=== PATIENT | female | born 1940 | race Caucasian/White ===

== ENCOUNTER 2021-04-24 07:30 | Outpatient (CLI) | payer OTHER, SELFPAY ==
[2021-04-24 08:21] LABS: Mean Corpuscular HGB Conc 31.7 g/dl (32-36); Mean Corpuscular Volume 91.5 fl (80-100); Mean Platelet Volume 9.9 fl (7.4-10.4); Platelet Count Result 212 k/mm3 (150-375); Red Blood Count 4.48 M/mm3 (4.2-5.4); Red Cell Distribution Width 12.9 % (11.5-14.5); White Blood Count 4.2 K/mm3 (4.5-10.0)
[2021-04-24 09:37] LABS: Alanine Aminotransferase 11 U/L (4-35); Albumin Level 3.9 g/dL (3.5-5.1); Alkaline Phosphatase 91 U/L (38-126); Anion Gap 5 mmol/L (8-16); Aspartate Amino Transferase 25 U/L (14-36); Bilirubin,Total 0.6 mg/dL (0.2-1.3); Blood Urea Nitrogen 19 mg/dL (7-17); Calcium 8.7 mg/dL (8.4-10.2); Carbon Dioxide 29 mmol/L (22-30); Chloride 106 mmol/L (98-107); Cholesterol 218 mg/dL (0-200); Estimated Glomerular Filt Rate > 60; Glucose 82 mg/dL (65-110); HDL Direct 68 mg/dL; Potassium 3.7 mmol/L (3.4-5.0); Sodium 140 mmol/L (137-145); Triglycerides 70 mg/dL (<150)
[2021-04-24 09:41] LABS: LDL Cholesterol Direct 107 mg/dL
[2021-04-24 10:58] LABS: Folic Acid 8.1 ng/mL (2.76->20)
== END 2021-04-24 07:31 | disposition home or self-care (01) ==
PROVIDERS: PCP Physician Assistant; Visit Provider Physician Assistant
DX: R53.83 Other fatigue (principal); E78.5 Hyperlipidemia, unspecified
CPT/HCPCS: 36415; 80053; 80061; 82607; 82746; 84443; 85027

== ENCOUNTER 2021-10-19 07:20 | Observation (INO) | payer OTHER, SELFPAY ==
[2021-10-19] VITALS (17 sets, daily range): BP systolic 143–205; BP diastolic 68–88; PULSE 67–96; RESP 14–19; TEMP 36.7–37.7; O2SAT 95–100
--- NOTE | ~2021-10-19 | XR_ITS ---
EXAMINATION: XR chest 1V DATE: 10/19/2021 08:11 INDICATION: Right-sided heaviness/weakness. Fall. TECHNIQUE: frontal view of the chest was obtained. COMPARISON: None FINDINGS: Chronic 1.5 cm calcified granuloma in the left lower lobe at the medial left lower lung zone which ca n be seen on CT dated 07/22/2008. No other airspace opacities, pulmonary edema, pleural effusion or pne umothorax. The cardiomediastinal silhouette is normal. Visualized bones and soft tissues are unremark able. IMPRESSION: 1. No acute cardiopulmonary disease. Reviewed, dictated and finalized at location A.
--- NOTE | ~2021-10-19 | XR_ITS ---
EXAMINATION: XR knee RT min 4V DATE: 10/19/2021 08:11 INDICATION: Fall with anterior right knee injury TECHNIQUE: Anteroposterior, 2 oblique and crosstable lateral views of the right knee were obtained COMPARISON: None. FINDINGS: Alignment is normal. No fracture. Osteoarthritis with mild joint space narrowing in the medial and pa tellofemoral compartments. No joint effusion/layering lipohemarthrosis. Soft tissues are unremarkable . IMPRESSION: 1. No right knee joint effusion or acute osseous abnormality. 2. Mild osteoarthritis in the medial and patellofemoral compartments. Reviewed, dictated and finalized at location A.
--- NOTE | ~2021-10-19 | CT_ITS ---
EXAMINATION: CTA BRAIN/CAROTID DATE: 10/19/2021 10:14 INDICATION: Right-sided weakness. TECHNIQUE: Computed tomographic angiography (CTA) of the head and neck was performed with 100 mL Omni paque-350 intravenous contrast. Multiplanar reconstructions and maximum intensity projection 3D-recon structions of the carotid arteries and of the intracranial arteries were created by the technologist on a separate workstation. Automated exposure control and iterative reconstruction technique were emp loyed.The dose-length product was 1031.22 mGy-cm. COMPARISON: None. FINDINGS: Carotid arteries: Minimal nonhemodynamically significant atherosclerotic plaque at the normal caliber aortic arch. No d issection. There is small amount of atherosclerotic plaque with 0% stenosis of the right and left car otid bulbs relative to normal distal artery lumen diameter (NASCET criteria). Mild biapical pleural-p arenchymal scarring. Calcified left hilar lymph nodes consistent with old granulomatous disease. Cerv ical soft tissues are unremarkable. Moderate to severe cervical spondylosis with mild central canal s tenosis at C5-C6 and mild neural foraminal stenosis at a few levels on both the left and right. Intracranial arteries Nonhemodynamically significant atherosclerosis at the bilateral carotid siphons. Is no hemodynamicall y significant stenosis in the vertebral, basilar and internal carotid arteries. Vertebral arteries ar e codominant. There are no aneurysms identified. Both A1 and P1 segments are patent. Cerebral arter ial arborization appears symmetric. No abnormally enhancing brain lesions identified. IMPRESSION: 1. 0% stenosis of the right carotid bulb relative to normal distal artery lumen diameter (NASCET crit eria). 2. Mild nonhemodynamically significant atherosclerotic plaque at the bilateral carotid siphons. Other zhu normal cerebral CT angiogram. Reviewed, dictated and finalized at location A. IMPRESSION: 1. 0% stenosis of the right carotid bulb relative to normal distal artery lumen diameter (NASCET criteria). 2. Mild nonhemodynamically significant atherosclerotic plaque at the bilateral carotid siphons. Otherwise normal cerebral CT angiogram.
--- NOTE | ~2021-10-19 | MR_ITS ---
EXAMINATION: MR brain/brain stem wo/w con DATE: 10/19/2021 14:38 INDICATION: Right hemiparesis. TECHNIQUE: Magnetic resonance imaging (MRI) of the brain and brainstem was performed without and with 15 mL MultiHance intravenous contrast. COMPARISON: Head CT 10/19/2021 FINDINGS: There are small acute infarcts in the left frontoparietal region, left parietal lobe, and l eft insula. There are scattered areas of nonspecific increased T2-weighted signal intensity in the ce rebral white matter, bilateral basal ganglia, and isak. There is no intracranial hemorrhage or abnorm al mass lesion. The ventricles are normal in size. There is mild mucosal thickening in the paranasal sinuses. The orbits are normal. The mastoid air cells are normal. IMPRESSION: 1. Acute infarcts involving the left frontoparietal region, left parietal lobe, and left insula. 2. Moderate nonspecific cerebral white matter disease and disease of the bilateral basal ganglia and isak, which likely represents chronic small vessel ischemic disease. Reviewed, dictated and finalized at location A. IMPRESSION: 1. Acute infarcts involving the left frontoparietal region, left parietal lobe, and left insula. 2. Moderate nonspecific cerebral white matter disease and disease of the bilate ral basal ganglia and isak, which likely represents chronic small vessel ischem ic disease.
--- NOTE | ~2021-10-19 | US_ITS ---
EXAMINATION: US carotid duplex BI DATE: 10/19/2021 11:13 INDICATION: Right-sided weakness with facial weakness and vertigo. TECHNIQUE: Grayscale, color Doppler, and pulsed Doppler images of the cervical carotid arteries were obtained. The degree of vessel stenosis is placed in one of the following categories: normal, <50%, 5 0-69%, >=70% but less than near-occlusion, near-occlusion, or total occlusion. Note that percent sten osis relative to normal distal artery lumen diameter is indirectly measured from velocity measurement s as described by Isaias, et al. Radiology 2003; 229:340-346. COMPARISON: Carotid CT angiogram dated 10/19/2021 FINDINGS: RIGHT: The right common carotid artery (CCA) peak systolic velocity (PSV) is 68 cm/s. The right internal car otid artery (ICA) PSV is 108 cm/s. The right ICA end-diastolic velocity (EDV) is 35 cm/s. The right I CA/CCA PSV ratio is 1.6. Grayscale and color Doppler images yield an estimate of <50% diameter reduct ion from plaque in the ICA. The external carotid artery (ECA) PSV is 89 cm/s. There is antegrade flow in the right vertebral artery. LEFT: The left CCA PSV is 71 cm/s. The left ICA PSV is 106 cm/s. The left ICA EDV is 35 cm/s. The left ICA/ CCA PSV ratio is 1.5. Grayscale and color Doppler images yield an estimate of <50% diameter reduction from plaque in the ICA. The ECA PSV is 78 cm/s. There is antegrade flow in the left vertebral artery . IMPRESSION: 1. <50% stenosis from minimal plaque in the right internal carotid artery. 2. <50% stenosis from minimal plaque in the left internal carotid artery. Reviewed, dictated and finalized at location A.
--- NOTE | ~2021-10-19 | CT_ITS ---
EXAMINATION: CT brain wo con DATE: 10/19/2021 07:56 INDICATION: Right-sided heaviness and weakness. TECHNIQUE: Computed tomography (CT) of the head was performed without intravenous contrast. Sagittal and coronal reconstructions were performed. The mA was adjusted according to patient size. Iterative reconstruction technique was employed. The dose-length product was 605.33 mGy-cm. COMPARISON: None FINDINGS: No acute intracranial hemorrhage, acute infarction or abnormal extra axial fluid collection.. There i s mild scattered white matter hypoattenuation consistent with chronic small vessel ischemic disease. Symmetric prominence of the sulci consistent with mild age-appropriate diffuse cerebral volume loss. Ventricles are normal and symmetric. No mass/mass effect. Mucosal thickening in the bilateral ethmoid sinuses. The orbits and mastoid air cells are normal. IMPRESSION: 1. Mild scattered white matter hypoattenuation consistent with chronic small vessel ischemic disease. No acute intracranial process. Reviewed, dictated and finalized at location A. IMPRESSION: 1. Mild scattered white matter hypoattenuation consistent with chronic small ve ssel ischemic disease. No acute intracranial process.
--- NOTE | 2021-10-19 07:23 | ECG_ITS ---
Measurements Intervals D Lo Rate: 90 P: 30 NJ: 138 QRS: 31 QRSD: 143 T: 24 QT: 383 QTc: 471 Interpretive Statements SINUS RHYTHM RIGHT BUNDLE BRANCH BLOCK ABNORMAL ECG NO PREVIOUS ECG AVAILABLE FOR COMPARISON Electronically Signed On 10-19-2021 7:36:35 CDT by Ricardo العراقي D.O.
[2021-10-19 07:32] LABS: Glucose Point of Care 102 mg/dl (65-105)
--- NOTE | 2021-10-19 07:47 | ED.GENADULT ---
HPI - General Adult General Chief complaint: Neuro Symptoms/Deficit Stated complaint: right sided heaviness Time Seen by Provider: 10/19/21 07:29 Source: RN notes reviewed History of Present Illness HPI narrative: Patient presents emergency room from home for right-sided weakness.. Patient states that symptoms occurred approximately noon yesterday. Patient states she notes a feeling of heaviness in her right arm and her right leg and difficulty lifting her right leg. She states that secondary to this she did fall this morning striking her right knee. She states she is noticed no trouble speaking states that she has been able to do things with her right arm but states that it just feels heavy to her she denies any fevers or chills chest pain shortness of breath or any other symptoms denies any previous history of stroke states she is on no blood thinner Related Data Home Medications Medication Instructions Recorded Confirmed No Home Medications 10/19/21 10/19/21 Allergies Allergy/AdvReac Type Severity Reaction Status Date / Time No Known Allergies Allergy Verified 10/19/21 08:17 Review of Systems Review of Systems: Gen.: Denies fevers or chills Eyes: Denies eye pain or visual change ENT: Denies congestion Respiratory: Denies shortness of breath or cough CV: Denies chest pain or palpitations GI: Denies abdominal pain nausea, emesis or diarrhea Musculoskeletal: Reports right knee pain Neuro: See HPI Skin: Denies rash Except as documented, all other systems reviewed and negative [facility] Past Medical History Medical History (Updated 10/19/21 @ 10:31 by Nicholas Fitzpatrick DO) Hyperlipidemia Family History Family History Father Heart disease Social History Social History Smoking status: Never smoker Second hand tobacco smoke exposure: No Alcohol intake: never Substance use: unknown Exam Narrative: APPEARANCE: No acute distress, nontoxic, resting in bed HEENT: Normocephalic, atraumatic, OMM, TMs clear bilaterally EYES: PERRL, EOMI RESPIRATORY: No respiratory distress, clear to auscultation bilaterally with no rhonchi wheezing or rales CARDIOVASCULAR: RRR s murmur ABDOMINAL: Soft, nontender, nondistended MUSCULOSKELETAL: Moves all extremities. No clubbing, cyanosis or edema. NEURO: A and O ?3, following commands, speech normal, mild right facial droop,muscle strength 5 out of 5 left upper and lower extremities, muscle strength 4 out of 5 in the right upper and lower extremities, no pronator drift SKIN:: Warm, dry. Normal Color PSYCHIATRIC: Normal affect/mood Course Course Emergency Course: Patient is not a candidate for tPA as last known normal was yesterday at noon Called and discussed with Dr. Briceño presentation work-up agrees with admission Cussed with Dr. Mccullough agrees with consult request patient have a CTA of the head and neck Discussed with patient and family results of workup and diagnosis. Discussed need for admission. Patient and family understand and agree to current treatment plan COVID swab was obtained for bed placement and a COVID swab did come back positive the patient is asymptomatic at this time Vital Signs Vital signs: Vital Signs Temperature 98.1 F 10/19/21 07:26 Pulse Rate 80 10/19/21 07:26 Respiratory Rate 18 10/19/21 07:26 Blood Pressure 203/87 H 10/19/21 07:26 Pulse Oximetry 99 10/19/21 07:26 Oxygen Delivery Room Air 10/19/21 07:26 Temperature 98.1 F 10/19/21 07:26 Pulse Rate 73 10/19/21 09:32 Respiratory Rate 18 10/19/21 09:32 Blood Pressure 205/71 H 10/19/21 09:32 Pulse Oximetry 98 10/19/21 09:32 Oxygen Delivery Room Air 10/19/21 07:26 Medical Decision Making Vital Signs Vital Signs: Vital Signs Temperature 98.1 F 10/19/21 07:26 Pulse Rate 80 10/19/21 07:26 Respiratory Rate 18 10/19/21 07
[2021-10-19 08:06] LABS: Eosinophils Absolute Auto 0.3 K/mm3 (0-0.3); Eosinophils Percent Auto 8.1 % (0-4.4); Hematocrit 36.1 % (37.0-47.0); Hemoglobin 11.7 g/dL (12.0-15.0); Immature Granulocyte Absolute 0.02 K/mm3 (0.00-0.031); Immature Granulocyte Percent A 0.5 % (0-0.5); Lymphocytes Absolute Auto 0.62 K/mm3 (0.9-3.2); Lymphocytes Percent Auto 14.8 % (18.3-44.2); Mean Corpuscular HGB Conc 32.4 g/dl (32-36); Mean Corpuscular Hemoglobin 28.2 pg (26-34); Monocytes Absolute Auto 0.3 K/mm3 (0.1-0.6); Monocytes Percent Auto 8.1 % (2.6-8.5); Neutrophils Absolute Auto 2.8 K/mm3 (1.3-6.7); Neutrophils Percent Auto 67.5 % (45.5-73.1); Platelet Count Result 265 k/mm3 (150-375); Red Blood Count 4.15 M/mm3 (4.2-5.4); Red Cell Distribution Width 12.8 % (11.5-14.5); White Blood Count 4.2 K/mm3 (4.5-10.0)
[2021-10-19 08:17] LABS: Alanine Aminotransferase 13 U/L (6-35); Albumin Level 3.6 g/dL (3.5-5.1); Alkaline Phosphatase 91 U/L (38-126); Anion Gap 11 mmol/L (8-16); Aspartate Amino Transferase 23 U/L (14-36); Bilirubin,Total 0.5 mg/dL (0.2-1.3); Blood Urea Nitrogen 15 mg/dL (7-17); Calcium 8.1 mg/dL (8.4-10.2); Carbon Dioxide 28 mmol/L (22-30); Chloride 103 mmol/L (98-107); Estimated CRCL calculation 51 ml/min; Estimated Glomerular Filt Rate > 60; Glucose 102 mg/dL (65-110); Potassium 3.6 mmol/L (3.4-5.0); Sodium 142 mmol/L (137-145)
[2021-10-19 08:25] LABS: Partial Thromboplastin Time 24.8 SECONDS (22.3-36.8); Prothrombin Time 12.5 Seconds (11.1-14.7)
[2021-10-19 08:27] LABS: Troponin I < 0.012 ng/mL (0.000-0.034)
[2021-10-19 09:30] LABS: SARS-CoV-2 RNA PCR Positive
[2021-10-19] MEDS: ASPIRIN 81 MG CHEWABLE TABLET 324 MG PO (09:41)
--- NOTE | 2021-10-19 11:56 | PC.NURSE ---
ordered lunch for patient
[2021-10-19 12:35] LABS: Troponin I < 0.012 ng/mL (0.000-0.034)
--- NOTE | 2021-10-19 14:39 | ADMGEN ---
This patient, Lovely Hall, was admitted to IMU Room 213-01 10/19/21 [id number]. Patient/family oriented to hospital policies and general routines including ID bracelet, bed and alarms, visiting hours, pain management, procedures, bathroom and other care routines, personal items, smoking policy, room service/diet, and visiting hours. Information on how to activate the Rapid Response Team has been discussed. Patient/Family are encouraged to report perceived risks to care and to ask questions if they do not understand what they are told or what they should do.
--- NOTE | 2021-10-19 15:22 | PM.IMHP ---
H&P: HPI History of Present Illness Date/Time: 10/19/21 15:22 Chief Complaint: Right sided heaviness Narrative: 81yo female with B12 deficiency and HLD here for right sided heaviness. Patient has not seen a physician for about 25 years up until 1 year ago when she present to the primary care doctor's office and was diagnosed with shingles. She did continue to see the primary care doctor and had lab work drawn in April of this year showing a WBC 4200, cholesterol 218 and at vitamin B12 level of 160. She does not recall being told that she has high cholesterol. She states that she should be on B12 replacement but only takes this 2x/week. Proximally 2 weeks ago, patient developed sinus congestion with slight cough. She started taking Tylenol cold and Sinus as well as Zaira-[place] Plus and allergy medication. She saw her provider about 10 days ago at which point a COVID test was negative. No antibiotics were provided. No imaging was done. Patient was told to continue her current [id number]-idhwdtg medical regiment. Check she began to feel better and about 1 week ago she attended a wedding. Despite stating that she has been feeling better she has continued taking his tufh-vux-xfgfeau medications for an additional week prior to admission. She denies any fever, chills, nausea, vomiting, diarrhea, dysuria, hematuria, rash. No known COVID exposure that she is aware of. Her does have similar symptoms. She has get a COVID vaccine series and 1 booster which was earlier this year. She has had a poor appetite. She does complain of night sweats over the past week or so. She has had a weight loss over 60 lb within the past year. She states she has been trying to lose weight. She is not up-to-date on her cancer screening. 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 Patient was doing well until 1 day prior to admission when while driving home from [employer], she felt the right foot ?was heavy?. This did not affect her driving. She was able to return home. She also describes it as ?numb? but that has not persisted. Her symptoms worsened involving the right upper extremity. She denies weakness or dropping of items from the right hand but that the right upper extremity feels ?heavy?. Again no numbness tingling or weakness in the arms or legs currently. She was walking normally but was ?swerving to the right?. She did fall this morning tripping over a throw rug landing on her right knee but no LOC or head injury. No headaches, vision changes, odynophagia or dysphagia. No tick bites or target skin rashes. She has no hx of CAD, HTN, DM. She smoked for <6 months 50 years ago. She was upset about having to bother her daughter to take her to the hospital and feels this is why her BP is elevated. Her is disabled. She presented to the ED for evaluation. In the ED, she was hemodynamically stable. BP was 203/87. WBC 4200, Hgb 11.7, calcium 8.1 and TP 6.0. Troponin negative x2. EKG showing NSR with Rt BBB. Head CT showing mild scattered white matter hypoattenuation consistent with chronic small-vessel ischemic disease but no acute findings. Chest x-ray was clear. Right knee x-ray showed no effusion or acute osseous abnormalities. CTA of the head and neck showed 0% stenosis of bilateral carotid bulb and had mild non-hemodynamically significant atherosclerotic plaque at the bilateral carotid siphons. She was given aspirin and admitted for further care. 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
[2021-10-19 16:58] LABS: Troponin I < 0.012 ng/mL (0.000-0.034)
[2021-10-19] MEDS: CYANOCOBALAMIN INJ 1,000 MCG/ML VIAL 1000 MCG IM (17:19)
[2021-10-19] MEDS: ATORVASTATIN 20 MG TABLET PO (17:19)
[2021-10-19 18:07] LABS: Appearance Urine Clear (Clear); Bilirubin Urine Negative (Negative); Blood Urine Negative (Negative); Color Urine Yellow (Yellow); Glucose Urine UA Negative (Negative); Ketones Urine Negative (Negative); Leukocyte Esterase Ur Trace LEU/UL (Negative); Nitrate Urine Negative (Negative); Protein Urine Negative (Negative); Specific Grav Ur <= 1.005 (1.001-1.035); Urobilinogen Urine 0.2 mg/dL (<2.0); pH Urine 5.5 (5.0-9.0)
[2021-10-19 18:38] LABS: Add Urine Microscopic? YES
[2021-10-19 18:39] LABS: RBC Urine 0-2 /hpf (0-2)
[2021-10-19 18:40] LABS: Squamous Epithelial Cell Urine Many /hpf (Few)
[2021-10-19 18:46] LABS: Immunoglobulin A 96 mg/dL (70-400); Immunoglobulin G 533 mg/dL (700-1600); Immunoglobulin M 42 mg/dL (40-230)
[2021-10-19 19:46] LABS: Folic Acid 12.4 ng/mL (2.76->20); Vitamin B12 > 1000.0 pg/mL (239-931)
[2021-10-19 20:59] LABS: Iron 41 ug/dL (37-170)
[2021-10-19 21:08] LABS: Percent Iron Saturation 15 % (20-50)
[2021-10-20] VITALS (9 sets, daily range): BP systolic 152–157; BP diastolic 69–81; PULSE 62–78; RESP 18–20; TEMP 36.3–37.2; O2SAT 95–98
[2021-10-20 04:40] LABS: Basophils Percent Auto 0.8 % (0.2-1.2); Eosinophils Absolute Auto 0.3 K/mm3 (0-0.3); Eosinophils Percent Auto 8.1 % (0-4.4); Hematocrit 33.9 % (37.0-47.0); Hemoglobin 10.8 g/dL (12.0-15.0); Immature Granulocyte Absolute 0.01 K/mm3 (0.00-0.031); Immature Granulocyte Percent A 0.3 % (0-0.5); Lymphocytes Absolute Auto 0.76 K/mm3 (0.9-3.2); Lymphocytes Percent Auto 19.2 % (18.3-44.2); Mean Corpuscular HGB Conc 31.9 g/dl (32-36); Mean Corpuscular Hemoglobin 28.8 pg (26-34); Mean Corpuscular Volume 90.4 fl (80-100); Mean Platelet Volume 9.2 fl (7.4-10.4); Monocytes Absolute Auto 0.4 K/mm3 (0.1-0.6); Monocytes Percent Auto 10.6 % (2.6-8.5); Neutrophils Absolute Auto 2.4 K/mm3 (1.3-6.7); Platelet Count Result 255 k/mm3 (150-375); Red Blood Count 3.75 M/mm3 (4.2-5.4)
[2021-10-20 04:50] LABS: Alanine Aminotransferase 10 U/L (6-35); Albumin Level 3.1 g/dL (3.5-5.1); Alkaline Phosphatase 72 U/L (38-126); Anion Gap 5 mmol/L (8-16); Aspartate Amino Transferase 21 U/L (14-36); Bilirubin,Total 0.7 mg/dL (0.2-1.3); Blood Urea Nitrogen 13 mg/dL (7-17); Calcium 8.2 mg/dL (8.4-10.2); Carbon Dioxide 27 mmol/L (22-30); Chloride 106 mmol/L (98-107); Estimated CRCL calculation 51 ml/min; Estimated Glomerular Filt Rate > 60; Glucose 96 mg/dL (65-110); Potassium 3.4 mmol/L (3.4-5.0); Sodium 138 mmol/L (137-145)
--- NOTE | 2021-10-20 09:01 | WPDNEURCNPN ---
Assessment and Plan Assessment and plan (1) Acute right-sided muscle weakness: Code(s): M62.81 - Muscle weakness (generalized) Status: Acute Assessment and Plan: Lovely Hall is a 81 year old female with a history of limited primary care and HLD who presented yesterday due to right sided weakness. She was found to have punctate strokes in the L MCA territory. Etiology unclear likely large vessel disease. Neuro exam this morning is non-focal and patient feels back to baseline.. - Will need surface echo - Start ASA 81mg and Plavix 75mg - Check LDL and A1c - Patient already on Lipitor 20mg Consult date: 10/20/21 Time Seen: 09:01 HPI: Lovely Hall is a 81 year old female with a history of limited primary care and HLD who presented yesterday due to right sided weakness. that developed on 10/18 at noon. She denied any vision changes speech issues, but did fall to her knees.She was taken to [facility] where she had a CT head which showed small vessel disease. She had a CTA which showed 0% stenosis of the R carotid bulb and mild nonhemodynamically significant atherosclerotic plaque at the bilateral carotid siphons. Carotid doppler showed < 50% stenosis bilaterally. Her BP on arrival was 203/87. Her NIH score was 1. She was outside window for tPA. MRI has already been done which showed acute infarct in the left frontoparietal, parietal, and left insula. She is Covid positive. She does not take any medications at home. Patient feels completely back to baseline this morning. She has been walking to the bathroom. Review of Systems Constitutional: Constitutional: Denies fatigue and Denies weakness Eyes: Eyes: Reports no additional eye complaints ENT: Reports system reviewed and no additional complaints, except as documented Cardiovascular: Cardiovascular: Reports no additional cardiovascular complaints Respiratory: Respiratory: Reports no additional respiratory complaints Gastrointestinal: Gastrointestinal: Reports no additional gastrointestinal complaints Genitourinary: Genitourinary: Reports no additional female genitourinary complaints Musculoskeletal: Musculoskeletal: Reports no additional musculoskeletal complaints Integumentary/Breasts: Skin/Breast: Reports system reviewed and no additional complaints, except as docu Neurologic: Reports as per HPI Psychiatric: Psychiatric: Reports no additional psychiatric complaints PMFSH Past Medical History Medical History B12 deficiency Herpes zoster September 2020 Hyperlipidemia Surgical History Surgical History 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 Rare alcohol use. No drug use. She is full code. She dominates her daughter Brent to be the individual would make medical decisions for her she is unable Smoking status: Never smoker Second hand tobacco smoke exposure: No Alcohol intake: never Substance use: never Spiritual care concerns: No Meds Home Medications and Allergies Home Medications Medication Instructions Recorded Confirmed Type No Home Medications 10/19/21 10/19/21 History Allergies Allergy/AdvReac Type Severity Reaction Status Date / Time No Known Allergies Allergy Verified 10/19/21 08:17 Vital Signs Vital Signs - 24 hr 10/19/21 09:16 10/19/21 09:32 10/19/21 10:11 Temperature Pulse Rate 92 73 75 Respiratory Rate 15 18 14 Blood Pressure 194/88 H 205/71 H 196/69 H Pulse Oximetry 98 98 100 Oxygen Delivery 10/19/21 10:17 10/19/21 12:32 10/19/21 12:47 Temperature Pulse Rate 71 76 67
[2021-10-20] MEDS: ENOXAPARIN 40 MG/0.4 ML SYRINGE SUB-Q (09:42)
[2021-10-20] MEDS: ATORVASTATIN 20 MG TABLET PO (09:42)
[2021-10-20] MEDS: ASPIRIN 81 MG CHEWABLE TABLET PO (09:42)
[2021-10-20 13:16] LABS: Cholesterol 165 mg/dL (0-200); HDL Direct 42 mg/dL; Triglycerides 76 mg/dL (<150)
[2021-10-20 13:25] LABS: Hemoglobin A1C 5.4 % (<5.7)
[2021-10-20 13:26] LABS: LDL Cholesterol Direct 92 mg/dL
[2021-10-20] MEDS: CLOPIDOGREL BISULFATE 75 MG TABLET PO (13:56)
--- NOTE | 2021-10-20 14:47 | PM.DS ---
DS: Admitting Diagnosis Discharge Date 10/20/21 Admitting Diagnosis Right sided heaviness DS: Discharge Diagnosis Discharge Diagnosis (1) CVA (cerebral vascular accident): Code(s): I63.9 - Cerebral infarction, unspecified Status: Acute (2) Acute right-sided muscle weakness: Code(s): M62.81 - Muscle weakness (generalized) Status: Acute (3) COVID-19: Code(s): U07.1 - COVID-19 Status: Acute (4) Hyperlipidemia: Code(s): E78.5 - Hyperlipidemia, unspecified Status: Acute (5) B12 deficiency anemia: Code(s): D51.9 - Vitamin B12 deficiency anemia, unspecified Status: Acute (6) Leukopenia: Code(s): D72.819 - Decreased white blood cell count, unspecified Status: Acute (7) Elevated blood pressure reading: Code(s): R03.0 - Elevated blood-pressure reading, without diagnosis of hypertension Status: Acute (8) URI (upper respiratory infection): Qualifiers: URI type: unspecified viral URI Qualified Code(s): J06.9 - Acute upper respiratory infection, unspecified Code(s): J06.9 - Acute upper respiratory infection, unspecified Status: Acute DS: Summary Hospital Course Reason for hospitalization: 81yo female with B12 deficiency and HLD here for right sided heaviness.??Please see H&P for details. Hospital Course: In the ED, she was hemodynamically stable. BP was 203/87.? WBC 4200, Hgb 11.7, calcium 8.1 and TP 6.0. Troponin negative x2. EKG showing NSR with Rt BBB.? Head CT showing mild scattered white matter hypoattenuation consistent with chronic small-vessel ischemic disease but no acute findings.? Chest x-ray was clear.? Right knee x-ray showed no effusion or acute osseous abnormalities.? CTA of the head and neck showed 0% stenosis of bilateral carotid bulb and had mild non-hemodynamically significant atherosclerotic plaque at the bilateral carotid siphons. She was given aspirin and admitted for further care. Patient was admitted to IMU. The leukopenia and her mild anemia most likely is related to B12 deficiency. She has been on decongestants for the past 2 weeks which is probably etiology of her elevated blood pressure. The elevated blood pressure could have resulted in the small CVA. MR brain showing acute infarcts involving the left frontoparietal region, left parietal lobe, and left insula. The URI symptoms are either allergy related and/or from COVID. COVID itself could be the etiology of the CVA. She did attend a wedding 1 week ago which could have been the source of her COVID exposure. She remained on room air through out her hospital course. Chest x-ray is clear. TSH nml. ASA was continued and Lipitor added. She worked with PT and OT and she did well. her neurologic symptoms resolved. Her protein level was low. UA showed no protieniuria but low IgG. Defer to her PCP for further evaluation. Blood pressure remained elevated but improved without intervention. Neurology consulted and Plavix added. Echo ordered but not able to be obtained prior to discharge. She overall did well and was able to be discharged home on 10/20/21 Status at Discharge Cognitive/behavioral status at discharge: stable Time Spent with Patient Time attestation: Total time spent providing and/or coordinating discharge services: 34 minutes Exam Narrative: AF 98.0 152/70 71 18 98% ra Gen - NARD Chest - CTA bilaterally, nml RR CV - RRR S1/S2. Tele showing PVCs but no significant dysrhythmias Abd - soft, NT, ND, +BS Ext - no pedal edema. Neuro - patient is alert and oriented x4. Strength is 5/5 in both upper and lower extremities Psych - normal mood and affect. Skin - warm and dry. Right knee anterior knee superficial abrasion DS: Data Data Completed and Pending Labs on day of discharge: Labs from last 24 hours 10/20/21 10/20/21 10/20/21 04:22 04:22 04:22 WBC RBC Hgb Hct MCV [facility]CH [facility] RD
[2021-10-21 09:17] LABS: Rapid Plasma Reagin Non-Reactive (NonReactive)
--- NOTE | 2021-10-22 12:23 | PC.NURSE ---
RPR is negative. Dr. Emily duval.
== END 2021-10-20 16:30 | disposition home or self-care (01) ==
LOC: ANHED 10:31 → ANHIMU 15:22
PROVIDERS: Admitting Provider Chiropractor; Emergency Provider Emergency Medicine; PCP Physician Assistant; Visit Provider Internal Medicine
DX: I63.9 Cerebral infarction, unspecified (principal); M62.81 Muscle weakness (generalized); U07.1 COVID-19; E78.5 Hyperlipidemia, unspecified; D51.9 Vitamin B12 deficiency anemia, unspecified; D72.819 Decreased white blood cell count, unspecified; R03.0 Elevated blood-pressure reading, without diagnosis of hypertension; J06.9 Acute upper respiratory infection, unspecified; D64.9 Anemia, unspecified; I45.10 Unspecified right bundle-branch block; M17.11 Unilateral primary osteoarthritis, right knee; Z87.891 Personal history of nicotine dependence; M25.561 Pain in right knee; W19.XXXA Unspecified fall, initial encounter; R29.701 NIHSS score 1; Z79.899 Other long term (current) drug therapy
CPT/HCPCS: 36415; 70450; 70496; 70498; 70553; 71045; 73564; 80053; 80061; 81001; 82607; 82728; 82746; 82784; 82948; 83036; 83540; 83550; 84443; 84484; 85025; 85610; 85730; 86592; 93005; 93880; 96372; 97161; 97165; 99285; A9270; A9577; C9803; G0378; J1650; J3420; Q9967; U0003; U0005

== ENCOUNTER 2021-11-18 09:27 | Outpatient (CLI) | payer OTHER, SELFPAY ==
--- NOTE | 2021-11-18 10:00 | ECHO_ITS ---
Patient Info Name: Lovely Hall Age: 81 years : 1940 Gender: Female Ht: 65 in Wt: 180 lbs BSA: 1.96 m2 HR: 67 bpm BP: 181 / 93 mmHg Technical Quality: Good Exam Date: 11/18/2021 10:32 AM Exam Location: [facility] Patient Status: Outpatient Admit Date: 11/18/2021 Staff Ordering Physician: Hermelindo Warner PA-C Trade Marker: Essie West RDCS Attending Provider: Hermelindo Warner PA-C Referring Physician: Alana WILLIS; Exam Type: CA echo doppler w bubble study Study Info Indications - cerebral infarction Complete two-dimensional, color flow and Doppler transthoracic echocardiogram is performed with agitated saline. Contrast/Agitated Saline Contrast/Ag. Saline: Agitated Saline Amount: 20.00 ml Administered By: Polly Ralph RDCS New IV Access: Inner Forearm and Left Site Condition: IV removed Summary 1. Left ventricular chamber dimension is normal. 2. Left ventricular systolic function is normal, estimated at 65-70%. 3. The left ventricular diastolic function is grade II diastolic dysfunction. 4. E/e' 8 is minimally elevated. 5. Global longitudinal strain is normal at -22.2%. 6. Left atrial chamber dimension is mildly enlarged. 7. There is mild mitral valve regurgitation. 8. There is mild tricuspid valve regurgitation. 9. No pulmonary hypertension, estimated pulmonary arterial systolic pressure is 32 mmHg. 10. Small atheroma in anterior and posterior aortic root. Left Ventricle E/e' 8 is minimally elevated. Global longitudinal strain is normal at -22.2%. Left ventricular chamber dimension is normal. Left ventricular systolic function is normal, estimated at 65-70%. The left ventricular diastolic function is grade II diastolic dysfunction. Right Ventricle Right ventricular chamber dimension is normal. Right ventricular systolic function is normal. Left Atria Left atrial chamber dimension is mildly enlarged. Right Atria Right atrial chamber dimension is normal. Atrial Septum Agitated saline injection with and without valsalva maneuver opacified right side cardiac chambers without shunt to left side cardiac chambers. Intact interatrial septum visualized by 2D and agitated saline imaging. Aortic Valve The aortic valve is trileaflet. There is no aortic valve stenosis. There is no aortic valve regurgitation. Pulmonic Valve There is no pulmonic regurgitation. Mitral Valve There is no mitral valve stenosis. There is mild mitral valve regurgitation. Tricuspid Valve There is mild tricuspid valve regurgitation. No pulmonary hypertension, estimated pulmonary arterial systolic pressure is 32 mmHg. Pericardium/Pleural There is no pericardial effusion. Inferior Vena Cava Normal inferior vena cava with >50% collapse upon inspiration consistent with normal right atrial pressure, 5 mmHg. Aorta Small atheroma in anterior and posterior aortic root. The aortic root size at the sinus of Valsalva is normal. Left Ventricular Outflow Tract Name Value Normal LVOT 2D LVOT Diameter 2.0 cm LVOT Doppler
== END 2021-11-18 09:28 | disposition home or self-care (01) ==
PROVIDERS: PCP Physician Assistant; Visit Provider Physician Assistant
DX: I63.9 Cerebral infarction, unspecified (principal); I34.0 Nonrheumatic mitral (valve) insufficiency; I36.1 Nonrheumatic tricuspid (valve) insufficiency
CPT/HCPCS: 93306; 96375

== ENCOUNTER 2022-10-05 14:04 | Emergency (ER) | payer OTHER, SELFPAY ==
--- NOTE | ~2022-10-05 | CT_ITS ---
EXAMINATION: CT facial & cervical spine wo DATE: 10/05/2022 15:15 INDICATION: Head injury TECHNIQUE: Computed tomography (CT) of the maxillofacial region and cervical spine was performed with out intravenous contrast. The dose-length product (DLP) was 247.57 mGy-cm. Automated exposure control and iterative reconstruction technique were employed. COMPARISON: 10/19/2021 FINDINGS: MAXILLOFACIAL CT: There is a frontal scalp hematoma. No facial fracture is identified. The globes and orbits are normal . The paranasal sinuses are well aerated. CERVICAL SPINE CT: No fracture, dislocation, or subluxation. There is moderate loss of intervertebral disc space height at C5-6. The odontoid process is intact. There is multilevel mild facet and uncovertebral joint osteo arthritis. The paravertebral soft tissues are normal. IMPRESSION: 1. Frontal scalp hematoma without facial fracture. 2. Mild cervical spondylosis without acute findings. Reviewed, dictated and finalized at location F.
--- NOTE | ~2022-10-05 | CT_ITS ---
EXAMINATION: CT brain wo con INDICATION: Head injury COMPARISON: 10/19/2021 TECHNIQUE: Standard unenhanced head CT. The dose-length product (DLP) was 605.33 mGy-cm. The mA was a djusted according to patient size. Iterative reconstruction technique was employed. FINDINGS: There is frontal scalp hematoma. There is no acute intraparenchymal hemorrhage. No evidence of mass lesion. No evidence of acute infarction. There is mild periventricular and subcortical hypod ensity probably related to small vessel ischemic disease. There is mild prominence of the sulci and v entricles related to cerebral atrophy. Intracranial calcified cerebral atherosclerosis is noted. Ther e are no extra-axial collections. There is no mass effect or midline shift. The orbits and soft tissu es are unremarkable. The visualized sinuses and mastoid air cells are well aerated. IMPRESSION: 1. No acute intracranial abnormality. 2. Age related findings. Reviewed, dictated and finalized at location F.
--- NOTE | ~2022-10-05 | XR_ITS ---
EXAMINATION: XR knee LT min 4V DATE: 10/05/2022 15:21 INDICATION: Left knee pain TECHNIQUE: Four views of the left knee were obtained. COMPARISON: None. FINDINGS: Alignment is normal. No fracture or osteochondral lesion. Joint spaces are normal with no e rosions. No joint effusion/synovitis. There is anterior soft tissue swelling of the knee. IMPRESSION: 1. Anterior soft tissue swelling of the knee without acute osseous abnormality. Reviewed, dictated and finalized at location F.
--- NOTE | ~2022-10-05 | XR_ITS ---
EXAMINATION: XR knee RT min 4V DATE: 10/05/2022 15:22 INDICATION: Right knee pain TECHNIQUE: Four views of the right knee were obtained. COMPARISON: 10/19/2021 FINDINGS: Alignment is normal. No fracture or osteochondral lesion. There is mild tricompartmental os teoarthritis characterized by tiny marginal osteophytes. No joint effusion/synovitis. Soft tissues a re unremarkable. IMPRESSION: 1. No acute osseous abnormality. Reviewed, dictated and finalized at location F.
[2022-10-05 13:55] VITALS: BP 207/78; PULSE 75; RESP 16; TEMP 36.3; O2SAT 98
--- NOTE | 2022-10-05 15:42 | ED.FALL ---
HPI - Fall General Chief Complaint: Fall Stated Complaint: fall Time Seen by Provider: 10/05/22 14:56 Source: patient Mode of arrival: EMS Limitations: no limitations History of Present Illness HPI Narrative: Patient is an 82 y/o female who presents to the ED via EMS with report of a fall with head injury. Patient reports she was getting out of her car just prior to arrival when she did not see the curb surrounding the handicapped parking spot. She tripped over the curb and fell forward, hitting her face on the ground. She sustained a large contusion and abrasion to her forehead. She denies any LOC and states she remembers the entire fall. Denies any dizziness or lightheadedness or other prodromal symptoms prior to the fall occurring. She did also land on her left knee and complains of pain to the left knee. She has been able to bear weight since the fall. Patient denies any other concerns since then. Denies dizziness, lightheadedness, nausea, vision changes, chest pain, difficulty breathing, rib pain, back pain, neck pain, right knee pain. Patient takes an aspirin 81 mg daily. Related Data Home Medications Medication Instructions Recorded Confirmed calcium carbonate 600 mg-vitamin 1 tablet PO DAILY 07/01/22 D3 20 mcg (800 unit) tablet (Caltrate with Vitamin D3) cholecalciferol (vitamin D3) 125 125 mcg PO DAILY 07/01/22 mcg (5,000 unit) capsule Allergies Allergy/AdvReac Type Severity Reaction Status Date / Time No Known Allergies Allergy Verified 10/05/22 14:15 Review of Systems Review of Systems: CONSTITUTIONAL: Denies fever, chills, or sweats. EYES: Denies visual changes. CARDIOVASCULAR: Denies chest pain. RESPIRATORY: Denies dyspnea. GASTROINTESTINAL: Denies abdominal pain, nausea, vomiting, or diarrhea. GENITOURINARY: Denies dysuria or hematuria. SKIN: See HPI. MUSCULOSKELETAL: See HPI. NEUROLOGIC: See HPI. 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 Rare alcohol use. No drug use. She is full code. She dominates her daughter Brent to be the individual would make medical decisions for her she is unable Smoking status: Never smoker Second hand tobacco smoke exposure: No Alcohol intake: current Alcohol use details: occasionally Substance use: never Substance use type: does not use Lack of Transportation: No Lack of Food: Never True Current Housing: I Have Housing Concerned About Future Housing: No Difficulty Paying Gas/Electric Bills: No Difficulty Paying for Meds: No Currently Unemployed: No Education: High School Diploma/GED Difficulty w/ Childcare or Family Care: No Living arrangements: alone Spiritual care concerns: No Exam Narrative: GENERAL: Elderly, well-nourished, non-toxic, in no acute distress. Pleasant and conversational. HEAD: Normocephalic. Large contusion with overlying abrasion and ecchymosis forming to mid forehead. No active bleeding. EYES: PERRLA/EOMI, conjunctiva clear. No nystagmus. ENT: Mild swelling, bruising, and tenderness to palpation over nasal bridge. No epistaxis. No septal hematoma. NECK: Supple. No adenopathy, no masses. No midline spinal tenderness. RESPIRATORY: Airway patent, respirations nonlabored. Clear to auscultation bilaterally, no rales, rhonchi, wheezing. CARDIOVASCU
[2022-10-05] MEDS: ACETAMINOPHEN 500 MG TABLET 1000 MG PO (16:10)
[2022-10-05 16:32] VITALS: BP 165/69; RESP 16
== END 2022-10-05 16:32 | disposition home or self-care (01) ==
PROVIDERS: Emergency Provider Physician Assistant; PCP Physician Assistant
DX: M25.562 Pain in left knee (principal); R22.42 Localized swelling, mass and lump, left lower limb; S09.90XA Unspecified injury of head, initial encounter; S00.03XA Contusion of scalp, initial encounter; W18.30XA Fall on same level, unspecified, initial encounter; Z79.82 Long term (current) use of aspirin; E78.5 Hyperlipidemia, unspecified; E53.8 Deficiency of other specified B group vitamins
CPT/HCPCS: 70450; 70486; 72125; 73564; 99284; A9270

== ENCOUNTER 2023-04-25 06:49 | Outpatient (CLI) | payer OTHER, SELFPAY ==
[2023-04-25 07:17] LABS: Basophils Percent Auto 1.2 % (0.2-1.2); Eosinophils Absolute Auto 0.2 K/mm3 (0-0.3); Eosinophils Percent Auto 5.7 % (0-4.4); Hematocrit 36.5 % (37.0-47.0); Hemoglobin 11.6 g/dL (12.0-15.0); Lymphocytes Percent Auto 32.9 % (18.3-44.2); Mean Corpuscular HGB Conc 31.8 g/dl (32-36); Mean Corpuscular Hemoglobin 29.2 pg (26-34); Mean Corpuscular Volume 91.9 fl (80-100); Mean Platelet Volume 9.9 fl (7.4-10.4); Monocytes Absolute Auto 0.4 K/mm3 (0.1-0.6); Neutrophils Absolute Auto 1.6 K/mm3 (1.3-6.7); Neutrophils Percent Auto 48.2 % (45.5-73.1); Platelet Count Result 197 k/mm3 (150-375); Red Blood Count 3.97 M/mm3 (4.2-5.4); Red Cell Distribution Width 12.8 % (11.5-14.5); White Blood Count 3.3 K/mm3 (4.5-10.0)
[2023-04-25 07:26] LABS: Hemoglobin A1C 5.6 % (<5.7)
[2023-04-25 07:30] LABS: Alanine Aminotransferase 15 U/L (6-35); Albumin Level 3.7 g/dL (3.5-5.1); Alkaline Phosphatase 91 U/L (38-126); Anion Gap 1 mmol/L (8-16); Aspartate Amino Transferase 34 U/L (14-36); Bilirubin,Total 0.7 mg/dL (0.2-1.3); Blood Urea Nitrogen 29 mg/dL (7-17); Calcium 8.7 mg/dL (8.4-10.2); Carbon Dioxide 29 mmol/L (22-30); Chloride 109 mmol/L (98-107); Cholesterol 141 mg/dL (0-200); Estimated Glomerular Filt Rate 60; Glucose 90 mg/dL (65-110); HDL Direct 75 mg/dL; Sodium 139 mmol/L (137-145); Triglycerides 39 mg/dL (<150)
[2023-04-25 07:40] LABS: LDL Cholesterol Direct 54 mg/dL
[2023-04-25 08:35] LABS: Folic Acid 14.6 ng/mL (2.76->20)
== END 2023-04-25 06:50 | disposition home or self-care (01) ==
LOC: ANHLAB 06:50
PROVIDERS: PCP Physician Assistant; Visit Provider Physician Assistant
DX: E78.5 Hyperlipidemia, unspecified (principal); R53.83 Other fatigue; R79.0 Abnormal level of blood mineral
CPT/HCPCS: 36415; 80053; 80061; 82607; 82746; 83036; 84443; 85025

== ENCOUNTER 2023-05-10 07:15 | Emergency (ER) | payer OTHER, SELFPAY ==
--- NOTE | ~2023-05-10 | XR_ITS ---
EXAMINATION: XR chest 1V portable 05/10/2023 08:29 INDICATION: Cough for 4 days PROCEDURE: AP portable chest COMPARISON: 10/19/2021 FINDINGS: The lungs are clear. The cardiomediastinal silhouette is within normal limits. There are no pleural effusions. There is no pneumothorax suspected. IMPRESSION: 1: NO ACUTE CARDIOPULMONARY DISEASE. Reviewed, dictated and finalized at location A.
[2023-05-10 07:20] VITALS: BP 200/88; PULSE 100; RESP 16; TEMP 37.1; O2SAT 94
--- NOTE | 2023-05-10 07:56 | ECG_ITS ---
Measurements Intervals [place] Rate: 80 P: 39 NJ: 128 QRS: 50 QRSD: 136 T: 21 QT: 375 QTc: 433 Interpretive Statements SINUS RHYTHM RIGHT BUNDLE BRANCH BLOCK ABNORMAL ECG COMPARED TO ECG 10/19/2021 07:34:54 NO SIGNIFICANT CHANGES Electronically Signed On 05-10-2023 8:38:08 CDT by Ricardo العراقي D.O.
--- NOTE | 2023-05-10 07:57 | ED.URI ---
HPI - URI/Sore Throat General Chief Complaint: Upper Respiratory Infection Stated Complaint: cough, cold symptoms Time Seen by Provider: 05/10/23 07:38 Source: patient History of Present Illness HPI Narrative: 82 year old female presenting for cough, congestion for 4 days. 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 Of note did not take her blood pressure medicine today. No productive cough. She is concerned about pneumonia because her of it. No chest pain Or shortness of breath. Related Data Home Medications Medication Instructions Recorded Confirmed calcium carbonate 600 mg-vitamin 1 tablet PO DAILY 07/01/22 04/23/23 D3 20 mcg (800 unit) tablet (Caltrate with Vitamin D3) cholecalciferol (vitamin D3) 125 125 mcg PO DAILY 07/01/22 04/23/23 mcg (5,000 unit) capsule Allergies Allergy/AdvReac Type Severity Reaction Status Date / Time No Known Allergies Allergy Verified 04/22/23 08:02 Review of Systems Review of Systems: All systems reviewed & are unremarkable except as noted in HPI and below PMFSH Past Medical History Medical History B12 deficiency Herpes zoster September 2020 Hyperlipidemia Surgical History Surgical History 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 Rare alcohol use. No drug use. She is full code. She dominates her daughter Brent to be the individual would make medical decisions for her she is unable Smoking status: Never smoker Second hand tobacco smoke exposure: No Alcohol intake: current Alcohol use details: occasionally Substance use: never Substance use type: does not use Do You Feel Safe in your Home?: Yes Lack of Transportation: No Lack of Food: Never True Current Housing: I Have Housing Concerned About Future Housing: No Difficulty Paying Gas/Electric Bills: No Difficulty Paying for Meds: No Currently Unemployed: No Education: High School Diploma/GED Difficulty w/ Childcare or Family Care: No Living arrangements: alone Spiritual care concerns: No Exam Narrative: Constitutional: Generally well appearing, no acute distress, hypertensive Head: Atraumatic, no deformities. Eyes: Pupils equal, round, and reactive to light. Neck: Supple, no tracheal deviation, no JVD. ENMT: Mucous membranes moist Cardiovascular: S1, S2 auscultated. No murmurs, rubs, or gallops. No S3/S4. Normal Distal pulses. No peripheral edema. Respiratory: Lung sounds equal. No wheezes, rales, or rhonchi. Gastrointestinal: Abdomen was soft and non-tender. Non-distended. No rebound or guarding. Genitourinary: Deferred Musculoskeletal: Normal muscle tone and bulk. No obvious deformities or tenderness over extremities. Skin: No rashes. Neurological: Strength 5/5 in extremities. Cranial nerves I-XII grossly intact. Distal sensation intact. Mental Status: Awake, alert and oriented x3. Follows commands Course Vital Signs Vital signs: Vital Signs Temperature 37.1 C 05/10/23 07:20 Pulse Rate 100 05/10/23 07:20 Respiratory Rate 16 05/10/23 07:20 Blood Pressure 200/88 H 05/10/23 07:20 Pulse Oximetry 94 05/10/23 07:20 Oxygen Delivery Room Air 05/10/23 07:20 Temperature 37.1 C 05/10/23 07:20 Pulse Rate 100 05/10/23 07:20 Respiratory Rate 16 05/10/23 07:20 Blood Pressure 200/88 H 05/10/23 07:20 Pulse Oximetry 94 05/10/23 07:20 Oxygen Delivery Room Air 05/10/23 07:20 MDM - URI/Sore Throat MDM Narrat
[2023-05-10 08:12] LABS: Influenza A QL RT-PCR Negative (Negative); Influenza B QL RT-PCR Negative (Negative); RSV RNA, RT-PCR Positive (Negative); SARS-CoV-2 RNA PCR Negative (Negative)
[2023-05-10] MEDS: lisinopriL 20 MG TABLET 40 MG PO (08:12)
[2023-05-10 08:16] VITALS: BP 201/87; PULSE 87; RESP 32; O2SAT 93
[2023-05-10 08:29] LABS: Basophils Percent Auto 0.6 % (0.2-1.2); Eosinophils Percent Auto 0.3 % (0-4.4); Hematocrit 37.1 % (37.0-47.0); Hemoglobin 12.1 g/dL (12.0-15.0); Immature Granulocyte Absolute 0.01 K/mm3 (0.00-0.031); Immature Granulocyte Percent A 0.3 % (0-0.5); Lymphocytes Absolute Auto 0.44 K/mm3 (0.9-3.2); Lymphocytes Percent Auto 12.1 % (18.3-44.2); Mean Corpuscular HGB Conc 32.6 g/dl (32-36); Mean Corpuscular Hemoglobin 29.3 pg (26-34); Mean Corpuscular Volume 89.8 fl (80-100); Monocytes Absolute Auto 0.5 K/mm3 (0.1-0.6); Monocytes Percent Auto 12.7 % (2.6-8.5); Neutrophils Absolute Auto 2.7 K/mm3 (1.3-6.7); Platelet Count Result 153 k/mm3 (150-375); Red Blood Count 4.13 M/mm3 (4.2-5.4); Red Cell Distribution Width 12.5 % (11.5-14.5); White Blood Count 3.6 K/mm3 (4.5-10.0)
[2023-05-10 08:32] VITALS: BP 199/70; PULSE 87; RESP 27; O2SAT 94
[2023-05-10 08:40] LABS: Alanine Aminotransferase 15 U/L (6-35); Albumin Level 3.6 g/dL (3.5-5.1); Alkaline Phosphatase 76 U/L (38-126); Anion Gap 2 mmol/L (8-16); Aspartate Amino Transferase 31 U/L (14-36); Bilirubin,Total 0.8 mg/dL (0.2-1.3); Blood Urea Nitrogen 17 mg/dL (7-17); Calcium 8.3 mg/dL (8.4-10.2); Carbon Dioxide 30 mmol/L (22-30); Chloride 104 mmol/L (98-107); Estimated CRCL calculation 51 ml/min; Estimated Glomerular Filt Rate > 60; Glucose 110 mg/dL (65-110); Potassium 3.7 mmol/L (3.4-5.0); Sodium 136 mmol/L (137-145)
[2023-05-10 08:51] LABS: Troponin I < 0.012 ng/mL (0.000-0.034)
[2023-05-10 09:20] VITALS: BP 190/68; PULSE 84; RESP 16; O2SAT 94
== END 2023-05-10 09:20 | disposition home or self-care (01) ==
PROVIDERS: Emergency Provider Emergency Medicine; PCP Physician Assistant
DX: J02.9 Acute pharyngitis, unspecified (principal); B97.4 Respiratory syncytial virus as the cause of diseases classified elsewhere; Z20.822 Contact with and (suspected) exposure to COVID-19; E78.5 Hyperlipidemia, unspecified; E53.8 Deficiency of other specified B group vitamins; Z79.82 Long term (current) use of aspirin
CPT/HCPCS: 36415; 71045; 80053; 84484; 85025; 87637; 93005; 99284; A9270

== ENCOUNTER 2023-11-21 06:52 | Outpatient (CLI) | payer OTHER, SELFPAY ==
[2023-11-21 07:25] LABS: Alanine Aminotransferase 12 U/L (6-35); Albumin Level 3.8 g/dL (3.5-5.1); Alkaline Phosphatase 86 U/L (38-126); Anion Gap 4 mmol/L (4-12); Aspartate Amino Transferase 25 U/L (14-36); Bilirubin,Total 0.7 mg/dL (0.2-1.3); Blood Urea Nitrogen 25 mg/dL (7-17); Calcium 8.8 mg/dL (8.4-10.2); Carbon Dioxide 30 mmol/L (22-30); Chloride 105 mmol/L (98-107); Cholesterol 175 mg/dL (0-200); Estimated Glomerular Filt Rate 60; Glucose 86 mg/dL (65-110); HDL Direct 87 mg/dL; Potassium 4.3 mmol/L (3.4-5.0); Sodium 139 mmol/L (137-145); Triglycerides 50 mg/dL (<150)
[2023-11-21 07:36] LABS: LDL Cholesterol Direct 57 mg/dL
[2023-11-21 08:06] LABS: Vitamin D 25 Hydroxy 84.6 ng/mL
[2023-11-21 08:34] LABS: Hemoglobin A1C 5.6 % (<5.7)
== END 2023-11-21 06:53 | disposition home or self-care (01) ==
PROVIDERS: PCP Physician Assistant; Visit Provider Nurse Practitioner
DX: E55.9 Vitamin D deficiency, unspecified (principal); D51.9 Vitamin B12 deficiency anemia, unspecified; E78.5 Hyperlipidemia, unspecified; R73.9 Hyperglycemia, unspecified
CPT/HCPCS: 36415; 80053; 80061; 82306; 82607; 83036

== ENCOUNTER 2024-05-21 06:46 | Outpatient (CLI) | payer MEDICARE, SELFPAY ==
--- OUTSIDE RECORDS SUMMARY | 2024-05-21 06:53 | XMS_ITS | Clinical Summary ---
Author Organization [facility] [address] Address [address] [place] [id number] Care Team Providers Care Financial Reporting Accountant Name Role Phone Roger Mary DO Primary Care Provider [phone] Allergies No known active allergies Medications No known medications Active Problems Problem Noted Date Diagnosed Date Bilateral carotid artery stenosis 10/23/2023 Assessment & Plan (11/20/2023 9:56 AM CDT): No evidence of carotid stenosis bilaterally. On her CTA of the chest she has minimal atherosclerotic disease the thoracic aorta, unlikely to be the cause of her stroke. Based on her history presented by her and her daughter her stroke occurred during the setting of uncontrolled hypertension. Recommend risk factor modification with ASA statin therapy and good blood pressure control. Can follow up with me as needed. Assessment & Plan (10/23/2023 12:36 PM CDT): Impression: Patient reports stroke in 2021. Her primary care provider has been monitoring with carotid duplex. Her last carotid duplex was performed in November 05, 2021. She remains asymptomatic. Plan: Recommend carotid duplex and follow-up in 4 weeks to discuss results. -continue ongoing risk factor modifications. Primary hypertension 10/23/2023 Assessment & Plan (11/20/2023 9:58 AM CDT): Stable continue lisinopril Assessment & Plan (10/23/2023 12:37 PM CDT): Impression: Chronic and stable. Plan: Continue blood pressure management as per PCP. Mixed hyperlipidemia 10/23/2023 Assessment & Plan (11/20/2023 9:56 AM CDT): Recommend statin therapy. Assessment & Plan (10/23/2023 12:36 PM CDT): Impression: Chronic and stable. Plan: Continue statin therapy as per PCP. 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 Gender Identity Not on file Sexual Orientation Not on file Obstetrics History Last Filed Vital Signs Vital Sign Reading Time Taken Comments Blood Pressure 160/81 11/18/2023 9:29 AM CDT Pulse 88 11/18/2023 9:29 AM CDT Temperature - - Respiratory Rate - - Oxygen Saturation 97% 11/18/2023 9:29 AM CDT Inhaled Oxygen Concentration - - Weight - - Height - - Body Mass Index - - Plan of Treatment Health Maintenance Due Date Last Done Comments Depression Screening 1940 Fall Risk Assessment 1940 Osteoporosis Screening-Bone Density Scan 1940 DTaP/Tdap/Td Vaccine (1 - Tdap) 1953 Hepatitis B Screening 1960 Pneumococcal vaccine 65+ (1 of 1 - PCV) 1992 Zoster Vaccine (1 of 2) 1992 Well Visit 65+ 10/03/2007 Covid-19 Vaccine ( season) 2023 01/30/2021, 05/17/2020, 04/24/2020 Influenza Vaccine (Season Ended) 2024 12/13/19 23 Insurance [facility] Care Teams Financial Reporting Accountant Relationship Specialty Start Date End Date Roger Mary DO [address] [facility] [address] [place], [place] [id number] PCP - General Internal Medicine 10/21/23
--- OUTSIDE RECORDS SUMMARY | 2024-05-21 06:53 | XMS_ITS | Clinical Summary ---
Author Organization [facility] Address [address] [place] [address] Phone Care Team Providers Care Side Seam Envelope Machine Operator Name Role Phone Hermelindo Warner [facility] Primary Care Provider Allergies No known active allergies Medications lisinopril (PRINIVIL, ZESTRIL) 40 MG Tablet Take 40 mg by mouth daily. Active aspirin EC 81 MG Tablet Delayed Response Take 81 mg by mouth daily. Active Calcium Carbonate-Vitami n D (CALTRATE 600+D PO) Take 1 Tablet by mouth daily. Active atorvastatin (LIPITOR) 20 MG Tablet Take 20 mg by mouth daily. Active Cholecalciferol (VITAMIN D3 PO) Take 125 mcg by mouth daily. Active Multiple Vitamins-Mineral s (MACULAR HEALTH FORMULA PO) Take 1 Tablet by mouth daily. Active Active Problems No known active problems Family History Medical History Relation Name Comments Heart Attack Father No Known Problems Mother Relation Name Status Comments Father Mother Social History Tobacco Use Types Packs/Day Years Used Date Smoking Tobacco: Never Smokeless Tobacco: Never Tobacco Cessation:Counseling Given: Not Answered Alcohol Use Standard Drinks/Week Comments Yes 0 (1 standard drink = 0.6 oz pur e alcohol) OCCASIONALLY Sexually Active Control Partners Comments Not Currently Comments Unknown Sex and Gender Information Value Date Recorded Sex Assigned at Not on file Legal Sex Female 7:49 PM CDT Gender Identity Not on file Sexual Orientation Not on file Last Filed Vital Signs Vital Sign Reading Time Taken Comments Blood Pressure 198/86 09/08/2022 10:40 AM CDT Pulse 58 09/08/2022 10:40 AM CDT Temperature 36.2 C (97.2 F) 09/08/2022 9:58 AM CDT Respiratory Rate 16 09/08/2022 9:58 AM CDT Oxygen Saturation 98% 09/08/2022 9:58 AM CDT Inhaled Oxygen Concentration - - Weight 81.6 kg (180 lb) 09/02/2022 11:40 AM CDT Height 165.1 cm (5' 5 ) 09/02/2022 11:40 AM CDT Body Mass Index 29.95 09/02/2022 11:40 AM CDT Plan of Treatment Health Maintenance Due Date Last Done Comments DEXA Bone Density 1940 Hepatitis C Virus (HCV) Screening 1940 TdaP Immunization 1940 Pneumococcal Immunization (5 0+ years) (1 of 1 - PCV) 1992 Zoster Immunization (1 of 2) 1992 Respiratory Syncytial Virus (RSV) Immunization (Adult) (1 - 1-dose 75+ series) 2017 Influenza Immunization (#1) 2023 SARS-COV-2 Immunization ( season) 2023 01/30/2021, 05/17/2020, 04/24/2020 Hepatitis B Immunization Aged Out No longer eligible based on patient's age to complete this topic Meningococcal Immunization (ACWY) Aged Out No longer eligible b ased on patient's age to complete this topic Rotavirus Immunization Aged Out No lo nger eligible based on patient's age to complete this topic Medical Devices Implanted Type Area Needlemaker Device Identifier Shelf Expiration Date Model / Serial / Lot Technis 1-Piece Iol With Simplicity Delivery System Implanted:Qty: 1 on 07/07/2022 by Aiden Bates MD at [facility] Right: Eye 05/14/2025 [id number] / [id number] / [id number] Technis 1-Piece Iol With Simplicity Delivery System Implanted:Qty: 1 on 09/08/2022 by Aiden Bates MD at [facility] Left: Eye [employer] 03/07/2025 [id number] / [id number] / [id number] Insurance MEDICARE C [employer] Care Teams Side Seam Envelope Machine Operator Relationship Specialty Start Date End Date Hermelindo Warner PAC [address] [place] [address] PCP - General Physician Fiberglass Autobody Repairer 06/30/22
--- OUTSIDE RECORDS SUMMARY | 2024-05-21 06:53 | XMS_ITS | Referral Summary ---
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
[2024-05-21 07:54] LABS: Alanine Aminotransferase 16 U/L (6-35); Albumin Level 3.6 g/dL (3.5-5.1); Alkaline Phosphatase 88 U/L (38-126); Anion Gap 4 mmol/L (4-12); Aspartate Amino Transferase 26 U/L (14-36); Bilirubin,Total 0.8 mg/dL (0.2-1.3); Blood Urea Nitrogen 21 mg/dL (7-17); Calcium 8.7 mg/dL (8.4-10.2); Carbon Dioxide 30 mmol/L (22-30); Chloride 106 mmol/L (98-107); Cholesterol 147 mg/dL (0-200); Estimated Glomerular Filt Rate 59; Glucose 85 mg/dL (65-110); HDL Direct 79 mg/dL; Potassium 4.2 mmol/L (3.4-5.0); Sodium 140 mmol/L (137-145); Triglycerides 42 mg/dL (<150)
[2024-05-21 08:04] LABS: Hemoglobin A1C 5.5 % (<5.7)
[2024-05-21 08:06] LABS: LDL Cholesterol Direct 47 mg/dL
[2024-05-21 08:14] LABS: Vitamin D 25 Hydroxy 75.9 ng/mL
== END 2024-05-21 06:47 | disposition home or self-care (01) ==
PROVIDERS: PCP Nurse Practitioner; Visit Provider Nurse Practitioner
DX: E78.5 Hyperlipidemia, unspecified (principal); E55.9 Vitamin D deficiency, unspecified; D51.9 Vitamin B12 deficiency anemia, unspecified; R73.9 Hyperglycemia, unspecified
CPT/HCPCS: 36415; 80053; 80061; 82306; 82607; 83036

== ENCOUNTER 2024-06-07 08:21 | Outpatient (CLI) | payer MEDICARE, SELFPAY ==
--- OUTSIDE RECORDS SUMMARY | 2024-06-07 08:35 | XMS_ITS | Clinical Summary ---
Author Organization [facility] Address [address] [place] [address] Phone Care Team Providers Care Hammer Fitter Name Role Phone Hermelindo Warner [facility] Primary Care Provider Allergies No known active [...] this topic Medical Devices Implanted Type Area Wool Scourer Device Identifier Shelf Expiration Date Model / Serial / Lot Technis 1-Piece Iol With Simplicity Delivery System Implanted:Qty: 1 on 07/07/2022 by Aiden Bates MD at [facility] Right: Eye 05/14/2025 [id number] / [id number] / [id number] Technis 1-Piece Iol With Simplicity Delivery System Implanted:Qty: 1 on 09/08/2022 by Aiden Bates MD at [facility] Left: Eye [employer] 03/07/2025 [id number] / [id number] / [id number] Insurance MEDICARE C [employer] Care Teams Hammer Fitter Relationship Specialty Start Date End Date Hermelindo Warner PAC [address] [place] [address] PCP - General Physician Bit Shaver 06/30/22
--- OUTSIDE RECORDS SUMMARY | 2024-06-07 08:35 | XMS_ITS | Referral Summary ---
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 Care Teams Patent Drafter Relationship Specialty Start Date End Date Roger Mary DO [address] [address] PCP - General Internal Medicine 10/21/23
--- OUTSIDE RECORDS SUMMARY | 2024-06-07 08:35 | XMS_ITS | Clinical Summary ---
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
== END 2024-06-07 08:22 | disposition home or self-care (01) ==
PROVIDERS: PCP Nurse Practitioner; Visit Provider Orthopaedic Surgery
DX: M25.562 Pain in left knee (principal)
CPT/HCPCS: 73564

== ENCOUNTER 2024-11-26 06:44 | Outpatient (CLI) | payer MEDICARE, SELFPAY ==
[2024-11-26 07:53] LABS: Alanine Aminotransferase 13 U/L (6-35); Albumin Level 3.5 g/dL (3.5-5.1); Alkaline Phosphatase 91 U/L (38-126); Anion Gap 2 mmol/L (4-12); Aspartate Amino Transferase 29 U/L (14-36); Bilirubin,Total 0.8 mg/dL (0.2-1.3); Blood Urea Nitrogen 18 mg/dL (7-17); Calcium 8.7 mg/dL (8.4-10.2); Carbon Dioxide 29 mmol/L (22-30); Chloride 106 mmol/L (98-107); Cholesterol 165 mg/dL (0-200); Estimated Glomerular Filt Rate 60; Glucose 89 mg/dL (65-110); HDL Direct 80 mg/dL; Potassium 4.1 mmol/L (3.4-5.0); Sodium 137 mmol/L (137-145); Total Protein 6.1 g/dL (6.3-8.2); Triglycerides 42 mg/dL (<150)
[2024-11-26 08:03] LABS: Hemoglobin A1C 5.3 % (<5.7)
== END 2024-11-26 06:45 | disposition home or self-care (01) ==
LOC: ANHLAB 06:48
PROVIDERS: PCP Nurse Practitioner; Visit Provider Nurse Practitioner
DX: R73.9 Hyperglycemia, unspecified (principal); E78.5 Hyperlipidemia, unspecified
CPT/HCPCS: 36415; 80053; 80061; 83036